=== PATIENT | male | born 1985 | race Caucasian/White ===

== ENCOUNTER 2018-11-27 03:38 | Emergency (ER) | payer OTHER ==
[2018-11-27] MEDS ORDERED: NS 1,000 ML IV ONE (03:55)
[2018-11-27] MEDS ORDERED: HYDROmorphONE/DILAUDID 2 MG/ML INJ IVP ONE ×2 (03:55→07:31)
[2018-11-27] MEDS ORDERED: ONDANSETRON 4 MG/2 ML VIAL IVP ONE (03:55)
--- NOTE | 2018-11-27 04:02 | EDPHY ---
H & P Stated Complaint: c/o groin/testicular/penile pain since monday morning, frequency, burning Time Seen by Provider: 11/27/18 04:01 HPI/ROS: HPI CHIEF COMPLAINT: Abdominal pain, back pain, dysuria HISTORY OF PRESENT ILLNESS: Patient is a 33-year-old male who presents emergency room with lower abdominal pain, back pain bilateral CVA region and dysuria. No fever. This started somewhat yesterday got worse tonight. No vomiting. Denies chills or rigors or fever. Denies testicular pain. Complains of lower abdominal pain low back pain and dysuria. Urinary frequency. Past Medical History: thyroid disease Past Surgical History: No recent surgical history Social History: Denies drugs alcohol tobacco. Family History: Noncontributory ROS REVIEW OF SYSTEMS: 10 Systems were reviewed and negative with the exception of the elements mentioned in the history of present illness. Exam Constitutional nontoxic, triage nursing summary reviewed, vital signs reviewed , awake/alert. Eyes normal conjunctivae and sclera, EOMI, PERRLA. HENT normal inspection, atraumatic, moist mucus membranes, no epistaxis, neck supple/ no meningismus, no raccoon eyes. Respiratory clear to auscultation bilaterally, normal breath sounds, no respiratory distress, no wheezing. Cardiovascular rate normal, regular rhythm, no murmur, no edema, distal pulses normal. Gastrointestinal no significant tenderness on exam, soft, non-tender, no rebound, no guarding, normal bowel sounds, no distension, no pulsatile mass. Genitourinary mild CVA tenderness. Musculoskeletal no midline vertebral tenderness, full range of motion, no calf swelling, no tenderness of extremities, no meningismus, good pulses, neurovascularly intact. Skin pink, warm, & dry, no rash, skin atraumatic. Neurologic awake, alert and oriented x 3, AAOx3, moves all 4 extremities equally, motor intact, sensory intact, CN II-XII intact, normal cerebellar, normal vision, normal speech. Psychiatric normal mood/affect. Heme/Lymph/Immune no lymphadenopathy. Differential Diagnosis: Differential diagnosis includes but is not limited to and in no particular order: Bowel obstruction, appendicitis, gallbladder disease, diverticulitis, colitis, enteritis, perforated viscus, gastritis, GERD , esophagitis, urinary tract infection, pyelonephritis, kidney stones Medical Decision Making: Plan for this patient IV establishment IV fluid bolus , IV Dilaudid for pain control IV Zofran for nausea, CT scan abdomen pelvis with IV contrast help delineate lower abdominal pain. Rule out appendicitis. Rule out pyelonephritis. Check urinalysis. Re-evaluation: CT scan abdomen pelvis without contrast shows a 3 mm left UVJ stone with hydronephrosis. Additionally on the CT scan of his abdomen pelvis ground-glass appearance of the lung base with a nodule this will need 3 month follow-up. Additionally the patient's LFTs are elevated. I have discussed this with him. He needs to follow up his primary care doctor about this. On re-examination at 7:32 a.m. He still has some left flank pain. He is requesting more pain medicine. I have ordered this patient 0.5 mg IV Dilaudid. Will re-evaluate. Is a prescription for Zofran, [place], Flomax He understands drink lots of fluids stay well-hydrated Return to the emergency room. If you have worsening pain fever vomiting return emergency room. Trace bacteria seen on the urinalysis. No high white blood cell count. No systemic white blood cell count. Urine culture sent. Will place on Keflex. Return emergency room if worsening symptoms Source: Patient - Medical/Surgical History Hx Asthma: No Hx Chronic Respiratory Disease: No Hx Diabetes: No Hx Cardiac Disease: No Hx Renal Disease: No Hx Cirrhosis: No Hx Alcoholism: No Hx HIV/AIDS: No Hx Splenectomy or Spleen Trauma: No Other PMH: hypothyroid, tonisllectomy - Social History Smoking Status: Former smoker Constitutional: Initial Vital Signs Temperature (C) 36.3 C 11/27/18 03:43 Heart Rate 89 11/27/18 03:43 Respiratory Rate 18 11/27/18 03:43 Blood Pressure 165/126 H 11/27/18 03:43 O2 Sat (%) 98 11/27/18 03:43 O2 Delivery Mode Room Air Allergies/Adverse Reactions: No Known Allergies Allergy (Unverified 11/27/18 03:47) Home Medications: Medication Instructions Recorded Cephalexin [Keflex (*)] 500 mg PO Q6H #28 cap 11/27/18 Hydrocodone/APAP 5/325 [[place] 1 - 2 tab PO Q4H PRN #10 tab 11/27/18 5/325] Levothyroxine 11/27/18 Ondansetron HCl [Zofran] 4 mg PO Q4-6PRN PRN #10 tablet 11/27/18 Tamsulosin HCl [Flomax] 0.4 mg PO DAILY #10 cap 11/27/18 Medical Decision Making - Data Points Laboratory Results: Laboratory Results 11/27/18 04:10 11/27/18 04:10 11/27/18 11/27/18 11/27/18 05:40 04:10 04:10 WBC 8.23 10^3/uL 10^3/uL (3.80-9.50) RBC 4.88 10^6/uL 10^6/uL (4.40-6.38) Hgb 15.2 g/dL g/dL (13.7-17.5) Hct 44.3 % % (40.0-51.0) MCV 90.8 fL fL (81.5-99.8) MCH 31.1 pg pg (27.9-34.1) MCHC 34.3 g/dL g/dL (32.4-36.7) RDW 12.1 % % (11.5-15.2) Plt Count 214 10^3/uL 10^3/uL (150-400) MPV 8.4 fL L fL (8.7-11.7) Neut % (Auto) 62.1 % % (39.3-74.2) Lymph % (Auto) 27.6 % % (15.0-45.0) [place] % (Auto) 7.7 % % (4.5-13.0) Eos % (Auto) 1.8 % % (0.6-7.6) Baso % (Auto) 0.4 % % (0.3-1.7) Nucleat RBC Rel Count 0.0 % % (0.0-0.2) Absolute Neuts (auto) 5.12 10^3/uL 10^3/uL (1.70-6.50) Absolute Lymphs (auto) 2.27 10^3/uL 10^3/uL (1.00-3.00) Absolute Monos (auto) 0.63 10^3/uL 10^3/uL (0.30-0.80) Absolute Eos (auto) 0.15 10^3/uL 10^3/uL (0.03-0.40) Absolute Basos (auto) 0.03 10^3/uL 10^3/uL (0.02-0.10) Absolute Nucleated RBC 0.00 10^3/uL 10^3/uL (0-0.01) Immature Gran % 0.4 % % (0.0-1.1) Immature Gran # 0.03 10^3/uL 10^3/uL (0.00-0.10) Sodium 138 mEq/L mEq/L (135-145) Potassium 4.5 mEq/L mEq/L (3.5-5.2) Chloride 108 mEq/L mEq/L (97-110) Carbon Dioxide 24 mEq/l mEq/l (22-31) Anion Gap 6 mEq/L mEq/L (6-14) BUN 17 mg/dL mg/dL (7-23) Creatinine 1.1 mg/dL mg/dL (0.7-1.3) Estimated GFR > 60 Glucose 95 mg/dL mg/dL (70-100) Calcium 9.3 mg/dL mg/dL (8.5-10.4) Total Bilirubin 1.6 mg/dL H mg/dL (0.1-1.4) Conjugated Bilirubin 0.6 mg/dL H mg/dL (0.0-0.5) Unconjugated Bilirubin 1.0 mg/dL mg/dL (0.0-1.1) AST 143 IU/L H IU/L (17-59) ALT 173 IU/L H IU/L (21-72) Alkaline Phosphatase 103 IU/L IU/L (38-126) Total Protein 7.9 g/dL g/dL (6.3-8.2) Albumin 4.6 g/dL g/dL (3.5-5.0) Lipase 123 IU/L IU/L (23-300) Specimen Hemolysis 139 Urine Color YELLOW Urine Appearance CLEAR Urine pH 6.0 (5.0-7.5) Ur Specific [place] 1.035 H (1.002-1.030) Urine Protein NEGATIVE (NEGATIVE) Urine Ketones NEGATIVE (NEGATIVE) Urine Blood 2+ H (NEGATIVE) Urine Nitrate NEGATIVE (NEGATIVE) Urine Bilirubin NEGATIVE (NEGATIVE) Urine Urobilinogen NEGATIVE EU EU (0.2-1.0) Ur Leukocyte Esterase NEGATIVE (NEGATIVE) Urine RBC 25-50 /hpf H /hpf (0-3) Urine WBC 1-3 /hpf /hpf (0-3) Ur Epithelial Cells NONE SEEN /lpf /lpf (NONE-1+) Urine Bacteria TRACE /hpf H /hpf (NONE SEEN) Urine Mucus TRACE /lpf /lpf (NONE-1+) Urine Glucose NEGATIVE (NEGATIVE) Medications Given: Discontinued Medications Hydromorphone HCl (Dilaudid) 0.5 mg IVP EDNOW ONE Stop: 11/27/18 03:56 Last Admin: 11/27/18 04:19 Dose: 0.5 mg Hydromorphone HCl (Dilaudid) 0.5 mg IVP EDNOW ONE Stop: 11/27/18 07:32 Last Admin: 11/27/18 07:37 Dose: 0.5 mg Sodium Chloride (Ns) 1,000 mls @ 0 mls/hr IV EDNOW ONE; Wide Open PRN Reason: Protocol Stop: 11/27/18 03:56 Last Admin: 11/27/18 04:11 Dose: 1,000 mls Ketorolac Tromethamine (Toradol) 15 mg IVP EDNOW ONE Stop: 11/27/18 07:02 Last Admin: 11/27/18 07:06 Dose: 15 mg Ondansetron HCl (Zofran) 4 mg IVP EDNOW ONE Stop: 11/27/18 03:56 Last Admin: 11/27/18 04:18 Dose: 4 mg Departure - Departure Disposition: Home, Routine, Self-Care Clinical Impression: Kidney stone on left side Condition: Good Instructions: Kidney Stones (ED), Renal Colic (ED), Pulmonary Nodules (ED) Additional Instructions: 1. Drink lots of fluids stay well-hydrated 2. Return emergency room if you have worsening abdominal pain, flank pain, vomiting 3. You have a kidney stone strain your urine 4. Follow up with Urology 5. Lung nodule seen on your CT scan you need to have follow-up CT scan in 3 months. 6. Additionally you have elevated liver enzymes you need to have these recheck by her primary care doctor. Referrals: Rachel Alex PA [Primary Care Provider] - As per Instructions Kerwin Solano MD [Medical Doctor] - As per Instructions Prescriptions: Cephalexin [Keflex (*)] 500 mg PO Q6H #28 cap Hydrocodone/APAP 5/325 [[place] 5/325] 1 - 2 tab PO Q4H PRN #10 tab PRN Reason: Pain, Moderate Ondansetron HCl [Zofran] 4 mg PO Q4-6PRN PRN #10 tablet PRN Reason: Nausea/Vomiting, Use 1st Tamsulosin HCl [Flomax] 0.4 mg PO DAILY #10 cap
[2018-11-27 04:20] LABS: PLATELET COUNT 214 10^3/uL (150-400)
[2018-11-27] MEDS ORDERED: IOPAMIDOL (ISOVUE 370) 100 ML BTL IV ONE (04:26)
[2018-11-27] MEDS ORDERED: KETOROLAC 15 MG/1 ML SDV IVP ONE (07:01)
[2018-11-27] MEDS ORDERED: CEPHALEXIN 500 MG CAP PO ONE (07:59)
[2018-11-27] MEDS ORDERED: CEPHALEXIN 500MG PREPACK#4 BTL TAKEHOME ONE (07:59)
[2018-11-27] MEDS ORDERED: HYDROCOD/APAP 5/325 PREPACK#6 BTL TAKEHOME ONE (08:03)
[2018-11-27] MEDS ORDERED: ONDANSETRON 4 MG/2 ML VIAL ONE (08:08)
[2018-11-27] MEDS ORDERED: ONDANSETRON 4MG PREPACK#2 BTL TAKEHOME ONE (08:16)
[2018-11-27 08:21] VITALS: BP 159/90
== END 2018-11-27 08:20 | disposition home or self-care (01) ==
DX: N13.2 Hydronephrosis with renal and ureteral calculous obstruction (principal); E86.9 Volume depletion, unspecified; E03.9 Hypothyroidism, unspecified; Z87.891 Personal history of nicotine dependence
CPT/HCPCS: 96374; J1170; J1885; J2405; Q9967